=== PATIENT | male | born 1955 ===

== ENCOUNTER 2018-04-25 06:59 | Day surgery (SDC) | payer BC ==
[2018-04-22 13:03] VITALS: BMI 36.9
[2018-04-25] MEDS ORDERED: Lidocaine 2% MPF (5 ml) Inj ONE (07:58)
[2018-04-25] MEDS ORDERED: DiphenhydrAMINE 50 mg/ml Inj ONE (07:58)
[2018-04-25] MEDS ORDERED: Iodixanol 320 MG/ML 200 ML BOTTLE IV ONE (08:02)
[2018-04-25] MEDS ORDERED: Midazolam 2 MG/2 ML VIAL ONE (08:32)
--- NOTE | 2018-04-27 23:20 | CARDCATH ---
PROCEDURE DATE: 04/25/2018 PROCEDURES: 1. Left heart catheterization. 2. Right heart catheterization. 3. Coronary angiogram. CLINICAL INDICATIONS: 1. Exertional dyspnea. 2. Pedal edema. 3. Hypertension. 4. Hyperlipidemia. 5. Pulmonary hypertension. REFERRING PHYSICIAN: Jyoti Anaya MD PERFORMING PHYSICIAN: Jose Maria Chakraborty MD DESCRIPTION OF PROCEDURE: After informed consent, the patient was prepped and draped in the usual sterile fashion. Lidocaine 2% was given in the right groin for local anesthesia. Using micropuncture technique, a 6-[place] sheath was introduced into the right common femoral artery. A 7-[place] sheath was introduced into the right common femoral vein. Using a JL4 6-[place] diagnostic catheter, left coronary angiogram was performed. A JR4 6-[place] diagnostic catheter was engaged into the right coronary artery. Contrast was injected and left coronary angiogram was done. Then, the pigtail catheter was crossed into the left ventricle across the aortic valve. The LV end-diastolic pressure was measured. Using the power injector, the LV angiogram was done. Then, the catheter was pulled back. Gradient across the aortic valve was measured. Through the common femoral vein sheath, Pearce-Bishnu catheter was introduced into the right heart. The right atrium and right ventricle pressures and saturations were measured. The patient tolerated the procedure well. Postprocedure, radiological supervision and interpretation of the coronary imaging were done. FINDINGS: 1. Left main coronary artery was patent. 2. LAD and diagonal branches were patent. 3. Left circumflex and obtuse marginal branches were patent. 4. Right coronary artery was dominant and patent. 5. LV ejection fraction was approximately 60%. Right heart catheterization has revealed moderate pulmonary hypertension. RV systolic pressure was 52 mmHg. However, could not cross into pulmonary artery. The patient has normal coronaries and normal LV systolic function. Moderate pulmonary hypertension. RECOMMENDATION: Recommend medical management. Jose Maria Chakraborty MD
== END 2018-04-25 13:10 | disposition home or self-care (01) ==
LOC: C.CATHLAB 06:59
PROVIDERS: ATTEND Internal Medicine Cardiovascular Disease
DX: R93.1 Abnormal findings on diagnostic imaging of heart and coronary circulation (principal); R06.02 Shortness of breath; R60.0 Localized edema; E78.5 Hyperlipidemia, unspecified; I10 Essential (primary) hypertension; I27.20 Pulmonary hypertension, unspecified
CPT/HCPCS: 93453; 99152; 99153; C1714; C1758; C1760; C1769; C1887; J1200; J1644; J2250; J2930; J3010; Q9966